=== PATIENT | male | born 1990 | race African-American/Black ===

== ENCOUNTER 2018-03-17 17:57 | Emergency (ER) | payer SELFPAY ==
[2018-03-17 18:33] LABS: Absolute Lymphocytes (CBC) 2.1 K/uL (0.7-4.9); Absolute Monocytes 0.5 K/uL (0.1-1.3); Absolute Neutrophil 3.8 K/uL (1.8-8.0); Basophils % 0.3 % (0-1.3); Eosinophils % 3.9 % (0-4.4); Lymphocytes % 31.1 % (15.3-44.8); MCH 27.5 pg (27.0-35.0); MCV 83.3 fL (80-100); MPV 7.7 fL (7.6-11.3); Monocytes % 7.8 % (3.3-12.3); RBC Red Blood Cell Count 5.64 M/uL (4.33-5.43)
[2018-03-17 18:37] LABS: Protime INR 1.05
[2018-03-17 18:43] LABS: BUN Blood Urea Nitrogen 11 mg/dL (7-18); Bicarbonate 25 mmol/L (21-32); Glucose Level 82 mg/dL (74-106); Magnesium 2.3 mg/dL (1.8-2.4); NT PRO-BNP 6 pg/mL (<125); Potassium 4.1 mmol/L (3.5-5.1); Sodium Level 139 mmol/L (136-145)
--- NOTE | 2018-03-17 19:00 | RAD REPORT ---
EXAM DESCRIPTION: RAD - Chest Single View - 03/17/2018 6:54 pm CLINICAL HISTORY: CHEST PAIN Chest pain. COMPARISON: Chest Single View dated 03/21/2016 FINDINGS: Portable technique limits examination quality. The lungs are grossly clear. The heart is normal in size. No displaced fractures. IMPRESSION: No acute intrathoracic process suspected.
--- NOTE | 2018-03-17 19:08 | EKG ---
Test Date: 2018-03-17 Test Time: 18:00:45 Auto Appraiser: KRIS MEASUREMENT RESULTS: Intervals: Rate: 67 PA: 186 QRSD: 100 QT: 422 QTc: 445 [place]: P: 65 PA: 186 QRS: 49 T: 65 INTERPRETIVE STATEMENTS: Normal sinus rhythm with sinus arrhythmia Nonspecific T wave abnormality Abnormal ECG Compared to ECG 08/10/2016 22:25:32 T-wave abnormality now present Electronically Signed On 03-17-18 19:07:58 CDT by Rodolfo Franklin
--- NOTE | 2018-03-17 19:18 | ER ---
Nurse's Notes [facility] Name: Miguel Urbina Age: 27 yrs Sex: Male : 1990 Arrival Date: 03/17/2018 Time: 18:02 Bed 5 Private MD: Diagnosis: Chest pain, unspecified Presentation: 03/17 18:03 Presenting complaint: Patient states: chest pain and hearing voices about 30 minutes dm5 prior to arrival. Pt states that he regularly hears voices but that the chest pain is new. Transition of care: patient was not received from another setting of care. Onset of symptoms was March 17, 2018. Initial Sepsis Screen: Does the patient meet any 2 criteria? No. Patient's initial sepsis screen is negative. Does the patient have a suspected source of infection? No. Patient's initial sepsis screen is negative. Care prior to arrival: None. 18:03 Method Of Arrival: Law Enforcement: [place] [employer] dm5 18:03 Acuity: FELICITA 3 dm5 19:00 Risk Assessment: Do you want to hurt yourself or someone else? Patient reports no bp desire to harm self or others. Triage Assessment: 18:03 General: Appears in no apparent distress. Behavior is calm, cooperative. Pain: dm5 Complains of pain in chest Pain radiates to left arm. Neuro: Level of Consciousness is awake, alert, obeys commands, Oriented to person, place, time, situation, Reports hearing voices. Respiratory: Airway is patent Respiratory effort is even, unlabored, relaxed, Respiratory pattern is regular, symmetrical. Derm: Skin is pink, warm \T\ dry. Historical: - Allergies: 18:04 No Known Allergies; sg - Home Meds: 18:04 Cogentin Oral [Active]; Depakote Oral [Active]; Risperdal Oral [Active]; sg - PMHx: 18:04 Bipolar disorder; Schizophrenia; sg - PSHx: 18:04 None; sg - Immunization history:: Adult Immunizations up to date. - Social history:: Smoking status: Patient/guardian denies using tobacco. - Ebola Screening: : Patient negative for fever greater than or equal to 101.5 degrees Fahrenheit, and additional compatible Ebola Virus Disease symptoms Patient denies exposure to infectious person Patient denies travel to an Ebola-affected area in the 21 days before illness onset No symptoms or risks identified at this time. Screenin:00 Abuse screen: Denies threats or abuse. Denies injuries from another. Nutritional sg screening: No deficits noted. Tuberculosis screening: No symptoms or risk factors identified. Never had TB. Fall Risk None identified. Assessment: 18:00 General: Appears in no apparent distress. comfortable, unkempt, well developed, well sg nourished, Behavior is calm, cooperative, appropriate for age, quiet. Pain: Complains of pain in chest Pain does not radiate. Quality of pain is described as sharp, stabbing. Neuro: Level of Consciousness is awake, alert, obeys commands, Oriented to person, place, time, situation, Tentmaker are equal bilaterally Moves all extremities. Full function Gait is steady, Speech is normal, Facial symmetry appears normal. Cardiovascular: Heart tones S1 S2 present Capillary refill is brisk in bilateral fingers Patient's skin is warm and dry. Chest pain quality is sharp, stabbing, is located in anterior chest wall. Respiratory: Airway is patent Respiratory effort is even, unlabored, Respiratory pattern is regular, symmetrical, Breath sounds are clear Denies cough, shortness of breath labored breathing, pain with respiration, pain with cough, pain with movement, air hunger. GI: No signs and/or symptoms were reported involving the gastrointestinal system. : No signs and/or symptoms were reported regarding the genitourinary system. EENT: No signs and/or symptoms were reported regarding the EENT system. Derm: Skin is intact, is healthy with good turgor, Skin is dry, Skin is normal, Skin temperature is warm. Musculoskeletal: No signs and/or symptoms reported regarding the musculoskeletal system. 19:00 Reassessment: RECD REPORT FROM NIRAV TREJO. 27YO BM P/W CP IN POLICE CUSTODY. ALL CURRENT bp ORDERS COMPLETED, RESULTS UNREMARKABLE. DISPO PENDING. 19:00 Pain: Pain began suddenly. bp 19:26 Reassessment: PT D/C IN CUSTODY, DX WITH UNSPECIFIED CHEST PAIN. bp Vital Signs: 18:03 BP 127 / 65; Pulse 77; Resp 18; Temp 98.3; Pulse Ox 100% on R/A; dm5 19:00 BP 105 / 73; Pulse 74; Resp 14; Pulse Ox 99% ; bp ED Course: 18:02 Patient arrived in ED. sg 18:03 Marlon Guerrier PA is PHCP. jr8 18:03 Adriel Navas MD is Attending Physician. jr8 18:03 Arm band placed on. sg 18:05 Triage completed. dm5 18:06 Ruel Dumas, RN is Primary Nurse. sg 18:14 EKG done, by civil drafting technician. reviewed by Marlon MCINTYRE. 3 18:20 Initial lab(s) drawn, Repeat lab(s) drawn. sent to lab. Inserted saline lock: 20 gauge iw in right antecubital area, using aseptic technique. Blood collected. 18:54 XRAY Chest (1 view) In Process Unspecified. EDMS 19:00 Patient has correct armband on for positive identification. Bed in low position. Call bp light in reach. Side rails up X2. Adult w/ patient. traffic monitor specialist on. Pulse ox on. NIBP on. 19:00 No provider procedures requiring assistance completed. IV discontinued, intact, bp bleeding controlled, No redness/swelling at site. Pressure dressing applied. Patient maintains SpO2 saturation greater than 95% on room air. 19:17 Primary Nurse role handed off by Ruel Dumas, MAYA 19:26 Bj Lr, RN is Primary Nurse. bp Administered Medications: No medications were administered Outcome: 19:17 Discharge ordered by . guillermina 19:27 Discharged to Law Enforcement bp 19:27 Condition: stable 19:27 Discharge instructions given to patient, Instructed on discharge instructions, follow up and referral plans. Demonstrated understanding of instructions, follow-up care. 19:28 Patient left the ED. bp Signatures: Dispatcher [employer] [facility] Tawnya Mullins, RN RN [facility] Ruel Dumas, RN Michelle Tobias RN RN iw Roszak, Josh, PA PA Bj Webber, MAYA TREJO bp Mary Denney 3
--- NOTE | 2018-03-17 19:18 | EDPHYS ---
Physician Documentation [facility] Name: Miguel Urbina Age: 27 yrs Sex: Male : 1990 Arrival Date: 03/17/2018 Time: 18:02 Bed 5 Private MD: ED Physician Adriel Navas HPI: 03/17 19:15 This 27 yrs old Black Male presents to ER via Law Enforcement with complaints of Chest jr8 Pain. 19:15 The patient or guardian reports chest pain that is located primarily in the anterior jr8 chest wall, left. The pain does not radiate. Associated signs and symptoms: The patient has no apparent associated signs or symptoms. The chest pain is described as squeezing. Duration: The patient or guardian reports a single episode. Modifying factors: The symptoms are alleviated by nothing. the symptoms are aggravated by nothing. Severity of pain: At its worst the pain was moderate in the emergency department the pain has improved. The patient has experienced similar episodes in the past, a few times. The patient has not recently seen a physician. Patient currently in half-way. Stated that while resting had sudden onset of chest pain. Has had this in past with no acute findings . Historical: - Allergies: 18:04 No Known Allergies; sg - Home Meds: 18:04 Cogentin Oral [Active]; Depakote Oral [Active]; Risperdal Oral [Active]; sg - PMHx: 18:04 Bipolar disorder; Schizophrenia; sg - PSHx: 18:04 None; sg - Immunization history:: Adult Immunizations up to date. - Social history:: Smoking status: Patient/guardian denies using tobacco. - Ebola Screening: : Patient negative for fever greater than or equal to 101.5 degrees Fahrenheit, and additional compatible Ebola Virus Disease symptoms Patient denies exposure to infectious person Patient denies travel to an Ebola-affected area in the 21 days before illness onset No symptoms or risks identified at this time. ROS: 19:15 Eyes: Negative for injury, pain, redness, and discharge, ENT: Negative for injury, jr8 pain, and discharge, Neck: Negative for injury, pain, and swelling, Respiratory: Negative for shortness of breath, cough, wheezing, and pleuritic chest pain, Abdomen/GI: Negative for abdominal pain, nausea, vomiting, diarrhea, and constipation, Back: Negative for injury and pain, MS/Extremity: Negative for injury and deformity, Skin: Negative for injury, rash, and discoloration, Neuro: Negative for headache, weakness, numbness, tingling, and seizure. 19:15 Cardiovascular: Positive for chest pain, Negative for edema, orthopnea, palpitations, paroxysmal nocturnal dyspnea. Exam: 19:15 Eyes: Pupils equal round and reactive to light, extra-ocular motions intact. Lids and jr8 lashes normal. Conjunctiva and sclera are non-icteric and not injected. Cornea within normal limits. Periorbital areas with no swelling, redness, or edema. ENT: Nares patent. No nasal discharge, no septal abnormalities noted. Tympanic membranes are normal and external auditory canals are clear. Oropharynx with no redness, swelling, or masses, exudates, or evidence of obstruction, uvula midline. Mucous membranes moist. Neck: Trachea midline, no thyromegaly or masses palpated, and no cervical lymphadenopathy. Supple, full range of motion without nuchal rigidity, or vertebral point tenderness. No Meningismus. Cardiovascular: Regular rate and rhythm with a normal S1 and S2. No gallops, murmurs, or rubs. Normal PMI, no JVD. No pulse deficits. Respiratory: Lungs have equal breath sounds bilaterally, clear to auscultation and percussion. No rales, rhonchi or wheezes noted. No increased work of breathing, no retractions or nasal flaring. Abdomen/GI: Soft, non-tender, with normal bowel sounds. No distension or tympany. No guarding or rebound. No evidence of tenderness throughout. Back: No spinal tenderness. No costovertebral tenderness. Full range of motion. Skin: Warm, dry with normal turgor. Normal color with no rashes, no lesions, and no evidence of cellulitis. MS/ Extremity: Pulses equal, no cyanosis. Neurovascular intact. Full, normal range of motion. Neuro: Awake and alert, GCS 15, oriented to person, place, time, and situation. Cranial nerves II-XII grossly intact. Motor strength 5/5 in all extremities. Sensory grossly intact. Cerebellar exam normal. Normal gait. Vital Signs: 18:03 BP 127 / 65; Pulse 77; Resp 18; Temp 98.3; Pulse Ox 100% on R/A; dm5 19:00 BP 105 / 73; Pulse 74; Resp 14; Pulse Ox 99% ; bp MDM: 18:03 Patient medically screened. [facility] 19:16 Data reviewed: vital signs, nurses notes, lab test result(s), EKG, radiologic studies, jr plain films. Data interpreted: Pulse oximetry: on room air is 100 %. Interpretation: normal. Counseling: I had a detailed discussion with the patient and/or guardian regarding: the historical points, exam findings, and any diagnostic results supporting the discharge/admit diagnosis, lab results, radiology results, the need for outpatient follow up, a family practitioner, to return to the emergency department if symptoms worsen or persist or if there are any questions or concerns that arise at home. 03/17 18:03 Order name: Basic Metabolic Panel; Complete Time: 19:03/17 18:03 Order name: CBC with Diff; Complete Time: 21:29 03/17 18:03 Order name: Magnesium; Complete Time: 19:03/17 18:03 Order name: NT PRO-BNP; Complete Time: 19:03/17 18:03 Order name: PT-INR; Complete Time: 19:03/17 18:03 Order name: Troponin (emerg Dept Use Only); Complete Time: 19:15 03/17 18:03 Order name: XRAY Chest (1 view); Complete Time: 19:15 03/17 18:03 Order name: EKG; Complete Time: 18:04 03/17 18:03 Order name: Cardiac monitoring; Complete Time: 18:06 03/17 18:03 Order name: EKG - Nurse/Tech; Complete Time: 18:06 03/17 18:03 Order name: IV Saline Lock; Complete Time: 18:58 03/17 18:03 Order name: Labs collected and sent; Complete Time: 18:58 03/17 18:03 Order name: O2 Per Protocol; Complete Time: 18: 03/17 18:36 Order name: CBC Smear Scan; Complete Time: 21:29 EDAL 03/17 18:03 Order name: O2 Sat Monitoring; Complete Time: 18:06 Administered Medications: No medications were administered Disposition: 21:32 Co-signature as Attending Physician, Adriel Navas MD I agree with the assessment and ps1 plan of care. Disposition: 03/17/18 19:17 Discharged to Home. Impression: Chest pain, unspecified. - Condition is Stable. - Discharge Instructions: Nonspecific Chest Pain, Chest Wall Pain. - Medication Reconciliation Form, Thank You Letter, Antibiotic Education, Prescription Opioid Use form. - Follow up: Private Physician; When: 5 - 6 days; Reason: Recheck today's complaints, Continuance of care, Re-evaluation by your physician. - Problem is new. - Symptoms have improved. Signatures: Dispatcher [employer] EDMS Ruel Dumas RN RN sg Marlon Guerrier PA PA jr8 Bj Lr RN RN bp Adriel Navas MD MD ps1 Corrections: (The following items were deleted from the chart) 19:28 19:17 03/17/2018 19:17 Discharged to Home. Impression: Chest pain, unspecified. bp Condition is Stable. Forms are Medication Reconciliation Form, Thank You Letter, Antibiotic Education, Prescription Opioid Use. Follow up: Private Physician; When: 5 - 6 days; Reason: Recheck today's complaints, Continuance of care, Re-evaluation by your physician. Problem is new. Symptoms have improved. jr8
[2018-03-17 19:28] LABS: Blood Morphology Comment NOT SEEN (NOT SEEN); Platelet Estimate ADEQ; Urine White Blood Cell Casts OK
[2018-03-17 19:39] VITALS: BP 105/73; O2SAT 99
[2018-03-17 19:40] VITALS: TEMP 98.3
== END 2018-03-17 19:28 | disposition home or self-care (01) ==
LOC: ER 17:57
DX: R07.9 Chest pain, unspecified (principal); F20.9 Schizophrenia, unspecified
CPT/HCPCS: 36415; 71045; 80048; 83735; 83880; 84484; 85025; 85610; 93005; 99285

== ENCOUNTER 2020-06-24 04:02 | Emergency (ER) | payer SELFPAY ==
[2020-06-24 04:20] LABS: Urine Blood NEGATIVE (NEG); Urine Glucose NEGATIVE (NEG); Urine Protein NEGATIVE (NEG); Urine Specific Gravity >1.030 (1.005-1.030)
[2020-06-24] MEDS ORDERED: THIAMINE 200 MG/2 ML INJ ONE (04:26)
[2020-06-24] MEDS ORDERED: NA CHLORIDE 0.9% 1,000 ML ONE (04:26)
[2020-06-24 04:36] LABS: Absolute Lymphocytes (CBC) 2.8 K/uL (0.7-4.9); Basophils % 0.5 % (0-1.3); Hematocrit 48.7 % (39.6-49.0); Lymphocytes % 26.1 % (15.3-44.8); MPV 7.8 fL (7.6-11.3); RBC Red Blood Cell Count 5.96 M/uL (4.33-5.43)
[2020-06-24 04:54] LABS: Barbiturates NEGATIVE (NEGATIVE); Benzodiazepines NEGATIVE (NEGATIVE); Cocaine NEGATIVE (NEGATIVE); METHAMPHETAM POSITIVE (NEGATIVE); Methadone NEGATIVE (NEGATIVE); Opiates NEGATIVE (NEGATIVE); Phencyclidine NEGATIVE (NEGATIVE); THC Cannibis POSITIVE (NEGATIVE)
[2020-06-24 04:58] LABS: Protime INR 0.95
[2020-06-24 05:05] LABS: ALT/SGPT 51 U/L (12-78); AST/SGOT 30 U/L (15-37); Albumin 3.7 g/dL (3.4-5.0); Alkaline Phosphatase 75 U/L (45-117); BUN Blood Urea Nitrogen 15 mg/dL (7-18); Bicarbonate 24 mmol/L (21-32); Bilirubin Direct < 0.1 mg/dL (0-0.2); Bilirubin Total 0.2 mg/dL (0.2-1.0); Glucose Level 107 mg/dL (74-106); Magnesium 2.4 mg/dL (1.8-2.4); NT PRO-BNP 20 pg/mL (<125); Potassium 4.1 mmol/L (3.5-5.1); Protein, Total 8.1 g/dL (6.4-8.2); Sodium Level 139 mmol/L (136-145); Troponin (Emerg Dept Use Only) < 0.02 ng/mL (0.0-0.045)
[2020-06-24] MEDS ORDERED: KETAMINE HCL 500 MG/5 ML VIAL ONE (05:15)
--- NOTE | 2020-06-24 08:55 | RAD REPORT ---
EXAM DESCRIPTION: RAD - Chest Single View - 06/24/2020 4:42 am CLINICAL HISTORY: COUGH Chest pain. COMPARISON: Chest Single View dated 03/17/2018; Chest Single View dated 03/21/2016 FINDINGS: Portable technique limits examination quality. The lungs are underinflated resulting in vascular crowding. The heart is normal in size. No displaced fractures. IMPRESSION: Underinflated lungs.
--- NOTE | 2020-06-24 09:26 | EDPHYS ---
Physician Documentation [facility] Name: Miguel Urbina Age: 29 yrs Sex: Male : 1990 Arrival Date: 06/24/2020 Time: 04:05 Bed 3 Private MD: ED Physician Issac Bar HPI: 06/24 04:38 This 29 yrs old Black Male presents to ER via EMS with complaints of Altered Mental patience Status. 04:38 The patient presents with confusion, decreased mental status. Onset: The patience symptoms/episode began/occurred just prior to arrival. Possible causes: drug use, alcohol, head injury, low blood sugar, seizure, unknown. Associated signs and symptoms: Pertinent positives: combativeness. Current symptoms: In the emergency department the patient's symptoms have improved, moderately, sedated, sp ketamine 200 mg. Patient's baseline: Neuro: alert and fully oriented. It is unknown whether or not the patient has had similar symptoms in the past. Historical: - Allergies: 04:23 No Known Allergies; sg - Home Meds: 04:23 Cogentin Oral [Active]; Depakote Oral [Active]; Risperdal Oral [Active]; sg - PMHx: 04:23 Bipolar disorder; Schizophrenia; sg - PSHx: 04:23 None; sg - Immunization history:: Adult Immunizations unknown. - Social history:: Smoking status: unknown. - Family history:: not pertinent. ROS: 04:38 Constitutional: Negative for fever, chills, and weight loss, Eyes: Negative for injury, patience pain, redness, and discharge, ENT: Negative for injury, pain, and discharge, Neck: Negative for injury, pain, and swelling, Cardiovascular: Negative for chest pain, palpitations, and edema, Respiratory: Negative for shortness of breath, cough, wheezing, and pleuritic chest pain, Abdomen/GI: Negative for abdominal pain, nausea, vomiting, diarrhea, and constipation, Back: Negative for injury and pain, : Negative for injury, bleeding, discharge, and swelling, MS/Extremity: Negative for injury and deformity, Skin: Negative for injury, rash, and discoloration, Psych: Negative for depression, anxiety, suicide ideation, homicidal ideation, and hallucinations, Allergy/Immunology: Negative for hives, rash, and allergies, Endocrine: Negative for neck swelling, polydipsia, polyuria, polyphagia, and marked weight changes, Hematologic/Lymphatic: Negative for swollen nodes, abnormal bleeding, and unusual bruising. 04:38 Neuro: Positive for altered mental status. Exam: 04:38 Constitutional: This is a well developed, well nourished patient who is awake, alert, patience and in no acute distress. Head/Face: Normocephalic, atraumatic. Eyes: Pupils equal round and reactive to light, extra-ocular motions intact. Lids and lashes normal. Conjunctiva and sclera are non-icteric and not injected. Cornea within normal limits. Periorbital areas with no swelling, redness, or edema. ENT: Nares patent. No nasal discharge, no septal abnormalities noted. Tympanic membranes are normal and external auditory canals are clear. Oropharynx with no redness, swelling, or masses, exudates, or evidence of obstruction, uvula midline. Mucous membranes moist. Neck: Trachea midline, no thyromegaly or masses palpated, and no cervical lymphadenopathy. Supple, full range of motion without nuchal rigidity, or vertebral point tenderness. No Meningismus. Chest/axilla: Normal chest wall appearance and motion. Nontender with no deformity. No lesions are appreciated. Respiratory: Lungs have equal breath sounds bilaterally, clear to auscultation and percussion. No rales, rhonchi or wheezes noted. No increased work of breathing, no retractions or nasal flaring. Abdomen/GI: Soft, non-tender, with normal bowel sounds. No distension or tympany. No guarding or rebound. No evidence of tenderness throughout. Back: No spinal tenderness. No costovertebral tenderness. Full range of motion. Male : Normal genitalia with no discharge or lesions. Skin: Warm, dry with normal turgor. Normal color with no rashes, no lesions, and no evidence of cellulitis. MS/ Extremity: Pulses equal, no cyanosis. Neurovascular intact. Full, normal range of motion. Neuro: Awake and alert, GCS 15, oriented to person, place, time, and situation. Cranial nerves II-XII grossly intact. Motor strength 5/5 in all extremities. Sensory grossly intact. Cerebellar exam normal. Normal gait. Psych: Awake, alert, with orientation to person, place and time. Behavior, mood, and affect are within normal limits. 04:38 Cardiovascular: Rate: tachycardic, Rhythm: regular, Pulses: Pulses are 4+ in bilateral radial, brachial, femoral, popliteal, posterior tibial and and dorsalis pedis arteries.. Heart sounds: normal, Edema: is not appreciated, JVD: is not appreciated. 04:38 Neuro: Orientation: unable to test, Mentation: confused, Memory: unable to test, Cranial nerves: grossly normal, is grossly normal based on the patient's age, no acute changes, Cerebellar function: unable to test, Motor: moves all fours, Sensation: unable to test, Gait: not tested. Deep tendon reflexes are 1 (trace) + in the bilateral brachioradialis, bicep, tricep and patellar and Achilles tendons, seizure activity, is not displayed by the patient. 04:55 ECG was reviewed by the Attending Physician. patience Vital Signs: 04:05 Pulse 112; Resp 16; Pulse Ox 90% on R/A; mg2 04:05 Weight 129.27 kg; sg 04:22 BP 148 / 98; Pulse 102; Resp 20; Pulse Ox 100% on 2 lpm NC; ea 04:26 Temp 97.5(A); mg2 05:47 BP 128 / 96; Pulse 87; Resp 20; Pulse Ox 95% ; ea 07:16 BP 132 / 93; Pulse 100; Resp 18; Pulse Ox 96% on R/A; em MDM: 04:06 Patient medically screened. patience 04:42 Differential Diagnosis: electrolyte abnormality, alcohol intoxication, hypoglycemia, patience intracranial bleed, meningitis, overdose, pneumonia, TIA, UTI, volume depletion. Data reviewed: vital signs, nurses notes, lab test result(s), EKG, radiologic studies, CT scan, plain films. Data interpreted: phototypesetting equipment monitor: rate is 102 beats/min, rhythm is regular, Pulse oximetry: on room air is 100 %. Test interpretation: by ED physician or midlevel provider: ECG, plain radiologic studies. Counseling: I had a detailed discussion with the patient and/or guardian regarding: the historical points, exam findings, and any diagnostic results supporting the discharge/admit diagnosis, the presence of at least one elevated blood pressure reading (>120/80) during this emergency department visit, lab results. 09:20 ED course: The patient was awake and intermittently responsive to questions. He is kdr non-threatening and non-combative. Does not appear to be SI/HI. . 06/24 04:07 Order name: Basic Metabolic Panel; Complete Time: 06:37 [facility] 06/24 04:07 Order name: CBC with Diff; Complete Time: 06:37 [facility] 06/24 04:07 Order name: LFT's; Complete Time: 06:37 [facility] 06/24 04:07 Order name: Magnesium; Complete Time: 06:37 [facility] 06/24 04:07 Order name: NT PRO-BNP; Complete Time: 06:37 [facility] 06/24 04:07 Order name: PT-INR; Complete Time: 06:37 [facility] 06/24 04:07 Order name: Troponin (emerg Dept Use Only); Complete Time: 06:37 [facility] 06/24 04:07 Order name: Acetaminophen; Complete Time: 06:37 [facility] 06/24 04:07 Order name: ETOH Level; Complete Time: 06:37 [facility] 06/24 04:07 Order name: Ptt, Activated; Complete Time: 06:37 [facility] 06/24 04:07 Order name: Salicylate; Complete Time: 06:37 [facility] 06/24 04:07 Order name: Urine Drug Screen; Complete Time: 06:37 [facility] 06/24 04:19 Order name: Urine Dipstick--Ancillary (enter results) tt3 06/24 04:19 Order name: Urine Dipstick-Ancillary; Complete Time: 06:37 [facility] 06/24 04:07 Order name: XRAY Chest (1 view) [facility] 06/24 04:07 Order name: EKG; Complete Time: 04:07 [facility] 06/24 04:07 Order name: Cardiac monitoring; Complete Time: 04:10 [facility] 06/24 04:07 Order name: EKG - Nurse/Tech; Complete Time: 04:10 [facility] 06/24 04:07 Order name: IV Saline Lock; Complete Time: 04:10 [facility] 06/24 04:07 Order name: Labs collected and sent; Complete Time: 04:10 [facility] 06/24 04:07 Order name: O2 Per Protocol; Complete Time: 04:10 [facility] 06/24 04:07 Order name: CT Head C Spine [facility] 06/24 04:23 Order name: Depakote; Complete Time: 06:37 sg 06/24 04:30 Order name: Glucose, Ancillary Testing; Complete Time: 06:37 [facility] 06/24 07:34 Order name: Diet Regular; Complete Time: 07:34 06/24 04:07 Order name: O2 Sat Monitoring; Complete Time: 04:10 [facility] 06/24 04:07 Order name: Urine Dipstick-Ancillary (obtain specimen); Complete Time: 04:10 [facility] 06/24 04:08 Order name: Blood Glucose Level; Complete Time: 04:10 [facility] 06/24 04:08 Order name: Restraint:Violent/Self Destructive (Adult:18yo or >); Complete Time: 04:10 [facility] 06/24 04:08 Order name: [place]; Complete Time: 04:10 [facility] EC:55 Rate is 103 beats/min. Rhythm is regular. QRS [place] is Normal. [place] interval is normal. [facility] QRS interval is normal. QT interval is normal. No Q waves. T waves are Normal. No ST changes noted. Clinical impression: Sinus tachycardia and No evidence of ischemia. Interpreted by me. Reviewed by me. Administered Medications: 04:20 Drug: NS 0.9% 1000 ml Route: IV; Rate: 1 bolus; Site: left antecubital; mg2 07:30 Follow up: IV Status: Completed infusion; IV Intake: 1000ml em 04:20 Drug: Thiamine 100 mg Route: IV; Rate: per protocol; Site: left antecubital; mg2 07:30 Follow up: Response: No adverse reaction; IV Status: Completed infusion em 05:10 Drug: Ketamine 100 mg Route: IVP; Site: left antecubital; ea 07:16 Follow up: Response: No adverse reaction; Marked relief of symptoms em 09:29 Not Given (Not needed at this time ): Ativan 2 mg IVP once; please give if awake and ss aggressive 09:29 Not Given (not needed at this time): Geodon 20 mg IM once; please give if awake and ss aggressive!!!! Disposition: 06/24/20 09:25 Discharged to Home. Impression: Adverse effect of amphetamines, Abuse of non-psychoactive substances, Bipolar disorder, Schizophrenia. - Condition is Stable. - Discharge Instructions: Stimulant Use Disorder-Amphetamines, Bipolar Disorder, Substance Use Disorder, Schizophrenia, Stimulant Use Disorder-Methamphetamines, Schizoaffective Disorder. - Medication Reconciliation Form, Thank You Letter form. - Follow up: Private Physician; When: 2 - 3 days; Reason: Recheck today's complaints, Continuance of care, Re-evaluation by your physician. Follow up: Dax Hirsch; When: 2 - 3 days; Reason: Recheck today's complaints, Re-evaluation by your physician. - Problem is new. - Symptoms have improved. Signatures: Dispatcher [employer] Ruel Aranda, RN Quinton Olea MD MD cha Rittger, Kevin, MD MD kdr Munoz, Edgar, RN RN em Antunez, Elena, RN RN ea Gardose, Michele, RN RN mg2 Smirch, Shelby RN ss Corrections: (The following items were deleted from the chart) 09:38 09:25 06/24/2020 09:25 Discharged to Home. Impression: Adverse effect of amphetamines; em Abuse of non-psychoactive substances; Bipolar disorder; Schizophrenia. Condition is Stable. Discharge Instructions: Stimulant Use Disorder-Amphetamines, Bipolar Disorder, Substance Use Disorder, Schizophrenia, Stimulant Use Disorder-Methamphetamines. Forms are Medication Reconciliation Form, Thank You Letter, Antibiotic Education, Prescription Opioid Use. Follow up: Private Physician; When: 2 - 3 days; Reason: Recheck today's complaints, Continuance of care, Re-evaluation by your physician. Follow up: Dax Hirsch; When: 2 - 3 days; Reason: Recheck today's complaints, Re-evaluation by your physician. Problem is new. Symptoms have improved. kdr
--- NOTE | 2020-06-24 09:26 | RAD REPORT ---
EXAM DESCRIPTION: Head C Spine Mpr Wo Con CLINICAL HISTORY: The patient is 29 years old and is Male; ams TECHNIQUE: Axial computed tomography images of the head/brain and cervical spine without intravenous contrast. Sagittal and coronal reformatted images were created and reviewed. This CT exam was pe rformed using one or more of the following dose reduction techniques: automated exposure control, a djustment of the mA and/or kV according to patient size, and/or use of iterative reconstruction techn ique. COMPARISON: No relevant prior studies available. FINDINGS: Brain: Unremarkable. No hemorrhage. No significant white matter disease. No edema. Ventricles: Unremarkable. No ventriculomegaly. Skull: No acute fracture. Sinuses: Unremarkable as visualized. No acute sinusitis. Mastoid air cells: Unremarkable as visualized. No significant mastoid fluid. Vertebrae: Anteroinferior corner of the C7 vertebral body is incompletely evaluated. No acute fr acture. Normal lateral alignment. Discs/spinal canal/neural foramina: No acute findings. No spinal canal stenosis. Soft tissues: Unremarkable. IMPRESSION: 1. No intracranial hemorrhage. No acute skull fracture. 2. No acute findings in the cervical spine. The anteroinferior corner of the C7 vertebral body is p artially cut off, incompletely evaluated. Electronically signed by: Cassidy Nettles MD 06/24/2020 5:55 AM ROLL THREADER OPERATOR Due to temporary technical issues with the PACS/Fluency reporting system, reports are being signed by the in house radiologist without review as a courtesy to ensure prompt reporting. The interpreting r adiologist is fully responsible for the content of the report.
--- NOTE | 2020-06-24 09:26 | ER ---
Nurse's Notes [facility] Name: Miguel Urbina Age: 29 yrs Sex: Male : 1990 Arrival Date: 06/24/2020 Time: 04:05 Bed 3 Private MD: Diagnosis: Adverse effect of amphetamines;Abuse of non-psychoactive substances;Bipolar disorder;Schizophrenia Presentation: 06/24 04:00 Chief complaint: EMS states: pt was found by family/friend that lives with patient, pt sg family/friend reports the pt to be confused and acting abnormal, with moaning sounds, and having been rocking his body back and forth while seated, no other complaints or information provided to EMS. Coronavirus screen: Client denies travel out of the [place] in the last 14 days. At this time, the client does not indicate any symptoms associated with coronavirus-19. Ebola Screen: Unable to complete the Ebola screening because: The patient does not understand the questions being asked. Initial Sepsis Screen: Does the patient meet any 2 criteria? Altered Mental Status. HR > 90 bpm. Yes Does the patient have a suspected source of infection? No. Patient's initial sepsis screen is negative. Risk Assessment: Do you want to hurt yourself or someone else? Patient reports no desire to harm self or others. Note pt family/friend had called EMS while in route to provide information that the pt may have a seizure disorder, takes a medication but is not sure if he has been compliant or not. Onset of symptoms was June 24, 2020. Care prior to arrival: Medication(s) given: ketamine 200 mg IM. Activity prior to arrival: combative, confused. Transition of care: patient was not received from another setting of care. 04:00 Method Of Arrival: EMS: [facility] sg 04:00 Acuity: FELICITA 2 sg Historical: - Allergies: 04:23 No Known Allergies; sg - Home Meds: 04:23 Cogentin Oral [Active]; Depakote Oral [Active]; Risperdal Oral [Active]; sg - PMHx: 04:23 Bipolar disorder; Schizophrenia; sg - PSHx: 04:23 None; sg - Immunization history:: Adult Immunizations unknown. - Social history:: Smoking status: unknown. - Family history:: not pertinent. Screenin:22 Abuse screen: Denies threats or abuse. Nutritional screening: No deficits noted. ea Tuberculosis screening: No symptoms or risk factors identified. Fall Risk IV access (20 points). Assessment: 04:05 General: Appears in no apparent distress. Behavior is unresponsive. Pain: Unable to use mg2 pain scale. Patient appears unresponsive. Neuro: Level of Consciousness is stuporous. Cardiovascular: Capillary refill < 3 seconds Patient's skin is warm and dry. Respiratory: Airway is patent Respiratory effort is even, unlabored, Respiratory pattern is regular, symmetrical. GI: No signs and/or symptoms were reported involving the gastrointestinal system. : No signs and/or symptoms were reported regarding the genitourinary system. EENT: Eyes reddened. Derm: Skin is intact, is healthy with good turgor, Skin is pink, warm \T\ dry. normal. Musculoskeletal: Circulation, motion, and sensation intact. Capillary refill < 3 seconds. 04:49 Reassessment: patient sent to CT scan via stretcher. mg2 05:00 Reassessment: Pt combative in CT, verbal order obtained for medication, medication ea administered, pt tolerated well. 05:46 Reassessment: Patient and/or family updated on plan of care and expected duration. Pain ea level reassessed. Pt resting with eyes closed, respirations even and unlabored chest expansions even and symmetrical. No s/s of pain or discomfort noted at this time. 06:11 Reassessment: Akhil (nephew) was updated about the patient status- [phone]. mg2 07:30 Reassessment: received VO to order pt a food tray from Dr. Carrera at bedside, pt em awake, calm, shaking head yes/no. 07:35 Reassessment: D/C'd restraints, pt awake calm and cooperative. em 07:50 Reassessment: Patient appears in no apparent distress at this time. Patient and/or em family updated on plan of care and expected duration. Pain level reassessed. Patient is alert, oriented x 3, equal unlabored respirations, skin warm/dry/pink. pt request catheter removed. 08:00 Reassessment: Dr. Bar at bedside. em 08:10 Reassessment: spoke with nephew and will come to the ED to cloth picker pt, nephew states he em feels comfortable taking pt home, does not have SI/HI hx but wants to get him help with [facility]. 08:34 Reassessment: breakfast tray given to pt, tolerated well. em 08:52 Reassessment: pt request to go smoke, instructed pt that this is a non smoking em facility, offered pt another intervention, pt refused, nephew called and informed pt that he does not have his vehicle at this time, nephew will attempt to get a hold of someone else to come cloth picker pt, pt waiting calmly in room. 09:20 Reassessment: pt request to be discharged, states he will walk home, was given shoes em and sweat pants and a gown, pt A\T\Ox 4 denies SI/HI. Vital Signs: 04:05 Pulse 112; Resp 16; Pulse Ox 90% on R/A; mg2 04:05 Weight 129.27 kg; sg 04:22 BP 148 / 98; Pulse 102; Resp 20; Pulse Ox 100% on 2 lpm NC; ea 04:26 Temp 97.5(A); mg2 05:47 BP 128 / 96; Pulse 87; Resp 20; Pulse Ox 95% ; ea 07:16 BP 132 / 93; Pulse 100; Resp 18; Pulse Ox 96% on R/A; em ED Course: 04:05 Patient arrived in ED. patience 04:05 Quinton Carrera MD is Attending Physician. patience 04:05 Urine collected: Downey catheter specimen, clear, noble colored, Amount Returned: 200mL sg Legal drug screen obtained per protocol. Downey cath inserted, using sterile technique, 16 Fr., by md, balloon inflated, to gravity drainage, urine specimen collected. returned noble urine. Patient tolerated well. 04:11 No provider procedures requiring assistance completed. Inserted saline lock: 20 gauge mg2 in left antecubital area, using aseptic technique. Blood collected. 04:17 Samantha Luther, MAYA is Primary Nurse. ea 04:21 Triage completed. sg 04:22 Patient has correct armband on for positive identification. Bed in low position. Call ea light in reach. 04:25 Arm band placed on right wrist. Patient placed in an exam room, on a stretcher, on ea oxygen, on potline monitor, on pulse oximetry. 04:40 XRAY Chest (1 view) In Process Unspecified. EDMS 05:34 CT Head C Spine In Process Unspecified. EDMS 07:20 Attending Physician role handed off by Quinton Carrera MD kdr 07:20 Issac Bar MD is Attending Physician. kdr 07:55 Downey cath removed intact, balloon deflated. em 08:45 IV discontinued, intact, bleeding controlled, No redness/swelling at site. Pressure em dressing applied. 09:25 Dax Hirsch MD is Referral Physician. kdr Restraints: 04:10 Violent/Self Destructive Restraint: Order: obtained. Initiated June 24, 2020 at sg 04:10 Staff present during the Initiation of Restraint: Samantha RN, Jeremiah RN, Dr.Anderson HERNANDEZ, Ruel RN, Harika [facility], Minh [facility]. Observed actions/behavior: destructive, violent, impaired decision making, Alternative interventions: Ineffective. Clinical justification for use: Violent/self destructing behavior impacts therapeutic environment. Poses a serious danger to physical safety of self \T\ others. 04:25 Violent/Self Destructive Restraint: Monitoring: Mental status: confused. Cognition: sg poor judgement, poor attention/concentration, unable to follow commands, Circulation: Within defined parameters (based on Cardiovascular assessment). Skin integrity: Within defined parameters (based on Integumentary assessment) Restraint status: Soft wrist restraint (Right) Continued. Soft wrist restraint (Left) Continued. Soft ankle restraint (Right) Continued. Soft ankle restraint (Left) Continued. 04:45 Violent/Self Destructive Restraint: Observed actions/behavior: impaired decision sg making, Clinical justification for use: Violent/self destructing behavior impacts therapeutic environment. Poses a serious danger to physical safety of self \T\ others. Monitoring: Mental status: confused. Cognition: poor judgement, poor attention/concentration, unable to follow commands, Circulation: Within defined parameters (based on Cardiovascular assessment). Skin integrity: Within defined parameters (based on Integumentary assessment) Restraint status: Soft wrist restraint (Right) Continued. Soft wrist restraint (Left) Continued. Soft ankle restraint (Right) Continued. Soft ankle restraint (Left) Continued. 05:00 Violent/Self Destructive Restraint: Observed actions/behavior: impaired decision sg making, Alternative interventions: Ineffective. Clinical justification for use: Violent/self destructing behavior impacts therapeutic environment. Poses a serious danger to physical safety of self \T\ others. Monitoring: Mental status: confused. Cognition: poor judgement, unable to follow commands, Circulation: Within defined parameters (based on Cardiovascular assessment). Skin integrity: Within defined parameters (based on Integumentary assessment) Restraint status: Soft wrist restraint (Right) Continued. Soft wrist restraint (Left) Continued. Soft ankle restraint (Right) Continued. Soft ankle restraint (Left) Continued. 05:15 Violent/Self Destructive Restraint: Observed actions/behavior: impaired decision sg making, Alternative interventions: Ineffective. Clinical justification for use: Violent/self destructing behavior impacts therapeutic environment. Poses a serious danger to physical safety of self \T\ others. Monitoring: Mental status: confused. Cognition: poor judgement, poor attention/concentration, unable to follow commands, Circulation: Within defined parameters (based on Cardiovascular assessment). Skin integrity: Within defined parameters (based on Integumentary assessment) Restraint status: Soft wrist restraint (Right) Continued. Soft wrist restraint (Left) Continued. Soft ankle restraint (Right) Continued. Soft ankle restraint (Left) Continued. 06:30 Violent/Self Destructive Restraint: Observed actions/behavior: ea confusion/disorientation, unable to follow instructions, rptd attempts to remove/tamper lines/tubes/IV/med devices \T\ wnd dressing, Monitoring: Mental status: patient asleep, Cognition: poor judgement, poor safety awareness, Impulsive, Circulation: Within defined parameters (based on Cardiovascular assessment). Skin integrity: Within defined parameters (based on Integumentary assessment) No injuries due to Restraints noted. Restraint status: Soft wrist restraint (Right) Continued. Soft wrist restraint (Left) Continued. Violent/Self Destructive Restraint: Observed actions/behavior: confusion/disorientation, unable to follow instructions, rptd attempts to remove/tamper lines/tubes/IV/med devices \T\ wnd dressing, Monitoring: Mental status: patient asleep, Cognition: poor judgement, poor safety awareness, Impulsive, Circulation: Within defined parameters (based on Cardiovascular assessment). Skin integrity: Within defined parameters (based on Integumentary assessment) No injuries due to Restraints noted. Restraint status: Soft wrist restraint (Right) Continued. Soft wrist restraint (Left) Continued. Soft ankle restraint (Right) Continued. Soft ankle restraint (Left) Continued. 06:45 Violent/Self Destructive Restraint: Observed actions/behavior: ea confusion/disorientation, unable to follow instructions, rptd attempts to remove/tamper lines/tubes/IV/med devices \T\ wnd dressing, Monitoring: Mental status: patient asleep, Cognition: poor judgement, poor safety awareness, Impulsive, Circulation: Within defined parameters (based on Cardiovascular assessment). Skin integrity: Within defined parameters (based on Integumentary assessment) No injuries due to Restraints noted. Restraint status: Soft wrist restraint (Right) Continued. Soft wrist restraint (Left) Continued. 07:00 Violent/Self Destructive Restraint: Observed actions/behavior: ea confusion/disorientation, unable to follow instructions, rptd attempts to remove/tamper lines/tubes/IV/med devices \T\ wnd dressing, Monitoring: Mental status: patient asleep, Cognition: poor judgement, poor safety awareness, Impulsive, Circulation: Within defined parameters (based on Cardiovascular assessment). Skin integrity: Within defined parameters (based on Integumentary assessment) No injuries due to Restraints noted. Restraint status: Soft ankle restraint (Right) Discontinued. Soft ankle restraint (Left) Discontinued. 07:15 Violent/Self Destructive Restraint: Observed actions/behavior: em confusion/disorientation, unable to follow instructions, Monitoring: Mental status: agitated/restless, confused. Cognition: poor judgement, poor safety awareness, unable to follow commands, Circulation: Within defined parameters (based on Cardiovascular assessment). Skin integrity: Within defined parameters (based on Integumentary assessment) No injuries due to Restraints noted. Restraint status: Soft wrist restraint (Right) Continued. Soft wrist restraint (Left) Continued. Soft ankle restraint (Right) Discontinued. Soft ankle restraint (Left) Discontinued. 07:30 Violent/Self Destructive Restraint: Observed actions/behavior: em confusion/disorientation, impaired decision making, Monitoring: Mental status: confused. Cognition: poor judgement, poor safety awareness, unable to follow commands, Restraint status: Soft wrist restraint (Right) Continued. Soft wrist restraint (Left) Continued. Soft ankle restraint (Right) Discontinued. Soft ankle restraint (Left) Discontinued. 07:35 Violent/Self Destructive Restraint: Restraint discontinuation: Discontinued at June at 07:35 Effective alternative interventions: reoriented to location, repositioned. Administered Medications: 04:20 Drug: NS 0.9% 1000 ml Route: IV; Rate: 1 bolus; Site: left antecubital; mg2 07:30 Follow up: IV Status: Completed infusion; IV Intake: 1000ml em 04:20 Drug: Thiamine 100 mg Route: IV; Rate: per protocol; Site: left antecubital; mg2 07:30 Follow up: Response: No adverse reaction; IV Status: Completed infusion em 05:10 Drug: Ketamine 100 mg Route: IVP; Site: left antecubital; ea 07:16 Follow up: Response: No adverse reaction; Marked relief of symptoms em 09:29 Not Given (Not needed at this time ): Ativan 2 mg IVP once; please give if awake and ss aggressive 09:29 Not Given (not needed at this time): Geodon 20 mg IM once; please give if awake and ss aggressive!!!! Intake: 07:30 IV: 1000ml; Total: 1000ml. em Outcome: 09:25 Discharge ordered by . kdr 09:34 Discharged to home ambulatory. em 09:34 Condition: improved 09:34 Discharge instructions given to patient, Instructed on discharge instructions, follow up and referral plans. Demonstrated understanding of instructions, follow-up care. 09:38 Patient left the ED. em Signatures: Dispatcher [employer] Ruel Aranda RN RN Quinton Antony MD MD cha Rittger, Kevin, MD MD kdr Munoz, Edgar, RN RN em Antunez, Elena, RN RN ea Gardose, Michele, RN RN mg2 Smirch, Shelby RN ss
[2020-06-24 10:26] VITALS: TEMP 97.5
[2020-06-24 10:34] VITALS: BP 132/93; O2SAT 96
== END 2020-06-24 09:38 | disposition home or self-care (01) ==
LOC: ER 04:02
DX: F55.8 Abuse of other non-psychoactive substances (principal); T43.625A Adverse effect of amphetamines, initial encounter; F25.0 Schizoaffective disorder, bipolar type
CPT/HCPCS: 36415; 51702; 70450; 71045; 72125; 80048; 80076; 80164; 80307; 80320; 80329; 81003; 82947; 83735; 83880; 84484; 85025; 85610; 85730; 93005; 96365; 96366; 96375; 99285; J3411; J7030

== ENCOUNTER 2025-06-05 17:46 | Emergency (ER) | payer SELFPAY ==
--- NOTE | 2025-06-05 18:00 | EDPHYS ---
Physician Documentation [facility] Name: Miguel Urbina Age: 34 yrs Sex: Male : 1990 Arrival Date: 06/05/2025 Time: 17:46 Bed IW5 Private MD: ED Physician Quinton Carrera HPI: 06/05 18:01 This 34 yrs old Black Male presents to ER via Ambulatory with complaints of Foreign sb4 Body In Ear - left. 18:02 The patient or guardian reports the patient has a suspected foreign body, sb4 18:05 Patient reports a foreign body sensation in his left ear since yesterday. He denies any sb4 pain. Is not sure what could be in there, thinks maybe a bug. Has tried shaking his ear but nothing has come out. Historical: - Allergies: 17:59 No Known Allergies; me1 - PMHx: 17:59 Bipolar disorder; Schizophrenia; me1 - Immunization history:: Adult Immunizations up to date. - Infectious Disease History:: Denies. - Social history:: Smoking status: unknown. ROS: 18:05 Constitutional: Negative for fever, chills, and weight loss, sb4 18:05 ENT: Positive for per HPI, 18:05 All other systems are negative, Exam: 18:05 Constitutional: This is a well developed, well nourished patient who is awake, alert, sb4 and in no acute distress. Head/Face: Normocephalic, atraumatic. Eyes: Extra-ocular motions intact. Periorbital areas with no swelling, redness, or edema. Respiratory: No increased work of breathing, no retractions or nasal flaring. Skin: Warm, dry with normal turgor. Normal color with no rashes, no lesions, and no evidence of cellulitis. 18:05 ENT: Ear canal(s): foreign body, ear bud, in the left external ear canal, Vital Signs: 17:57 BP 132 / 68; Pulse 95; Resp 16; Temp 98.2; Pulse Ox 100% ; Weight 90.72 kg; Height 6 me1 ft. 0 in. ; 17:57 Body Mass Index 27.12 (90.72 kg, 182.88 cm) me1 Procedures: 18:05 Foreign Body Removal: ear bud, from the left ear canal, by using alligator clamps, The sb4 patient tolerated the removal well. MDM: 17:50 Medical Screening Exam initiated sb4 18:05 Data reviewed: vital signs, nurses notes, and as a result, I will discharge patient. sb4 Counseling: I had a detailed discussion with the patient and/or guardian regarding the historical points, exam findings, and any diagnostic results supporting the discharge/admit diagnosis, the need for outpatient follow up, for definitive care, to return to the emergency department if symptoms worsen or persist or if there are any questions or concerns that arise at home. Administered Medications: No medications were administered Disposition Summary: 06/05/25 18:00 Discharge Ordered Notes: Location: Home sb4 Condition: Stable sb4 Diagnosis - Foreign body in left ear sb4 Followup: sb4 - With: Private Physician - When: As needed - Reason: Recheck today's complaints, Re-evaluation by your physician Discharge Instructions: - Discharge Summary Sheet sb4 - Ear Foreign Body, [id number] sb4 Forms: - Patient Portal Instructions sb4 - Leadership Thank You Letter sb4 Signatures: Jennifer Doll PA-C PA-C sb4 Clarisa Pham, RN RN me1
--- NOTE | 2025-06-05 18:00 | ER ---
Nurse's Notes [facility] Name: Miguel Urbina Age: 34 yrs Sex: Male : 1990 Arrival Date: 06/05/2025 Time: 17:46 Bed IW5 Private MD: Diagnosis: Foreign body in left ear Presentation: 06/05 17:57 Chief complaint: Patient states: feels like something is in his left ear since me1 yesterday. Coronavirus screen: At this time, the client does not indicate any symptoms associated with coronavirus-19. Ebola Screen: No symptoms or risks identified at this time. Initial Sepsis Screen: Does the patient meet any 2 criteria? HR > 90 bpm. Does the patient have a suspected source of infection? No. Patient's initial sepsis screen is negative. Risk Assessment: Do you want to hurt yourself or someone else? Patient reports no desire to harm self or others. Onset of symptoms was June 04, 2025. 17:57 Method Of Arrival: Ambulatory in1 17:57 Acuity: FELICITA 5 me1 Triage Assessment: 17:59 General: Appears in no apparent distress. Behavior is calm, cooperative, appropriate me1 for age. Pain: Denies pain. EENT: Reports feels like something is in his left ear since yesterday. Neuro: Level of Consciousness is awake, alert, obeys commands, Oriented to person, place, time, situation, Appropriate for age. Cardiovascular: Patient's skin is warm and dry. Respiratory: Airway is patent Respiratory effort is even, unlabored, Respiratory pattern is regular, symmetrical. GI: No signs and/or symptoms were reported involving the gastrointestinal system. : No signs and/or symptoms were reported regarding the genitourinary system. Derm: Skin is intact, is healthy with good turgor, Skin is normal. Musculoskeletal: Circulation, motion, and sensation intact. Range of motion: intact in all extremities. Historical: - Allergies: 17:59 No Known Allergies; me1 - PMHx: 17:59 Bipolar disorder; Schizophrenia; me1 - Immunization history:: Adult Immunizations up to date. - Infectious Disease History:: Denies. - Social history:: Smoking status: unknown. Screenin:01 [facility] ED Fall Risk Assessment (Adult) History of falling in the last 3 months, me1 including since admission No falls in past 3 months (0 pts) Confusion or Disorientation No (0 pts) Intoxicated or Sedated No (0 pts) Impaired Gait No (0 pts) Mobility Assist Device Used No (0 pt) Altered Elimination No (0 pt) Score/Fall Risk Level 0 - 2 = Low Risk Maintained a safe environment, Provided non-skid footwear, Hourly rounding (assess needs \T\ fall precautionary measures) done. Abuse screen: Denies threats or abuse. Nutritional screening: No deficits noted. Tuberculosis screening: No symptoms or risk factors identified. Assessment: 18:01 Reassessment: See triage assessment. me1 Vital Signs: 17:57 BP 132 / 68; Pulse 95; Resp 16; Temp 98.2; Pulse Ox 100% ; Weight 90.72 kg; Height 6 me1 ft. 0 in. ; 17:57 Body Mass Index 27.12 (90.72 kg, 182.88 cm) me1 ED Course: 17:49 Patient arrived in ED. im 17:50 [facility]. sb4 17:50 Quinton Carrera MD is Attending Physician. sb4 17:59 Triage completed. me1 17:59 Arm band placed on Patient placed. me1 18:00 Quinton Carrera MD is Referral Physician. sb4 18:00 Referral Physician role handed off by Quinton Carrera MD sb4 18:01 Patient has correct armband on for positive identification. Provided Education on: POC. me1 Verbalized understanding.. 18:01 Assist provider with foreign body removal from left ear canal. using alligator clamps, me1 Performed by Jennifer Doll PA-C Patient tolerated well. Patient did not have IV access during this emergency room visit. Administered Medications: No medications were administered Medication: 18:01 VIS not applicable for this client. me1 Outcome: 18:00 Discharge ordered by . sb4 18:01 Discharged to home ambulatory, me1 18:01 Condition: stable 18:01 Discharge instructions given to patient, Instructed on discharge instructions, follow up and referral plans. Demonstrated understanding of instructions, follow-up care, 18:02 Patient left the ED. me1 Signatures: Jennifer Doll PA-C PA-C sb4 Maddison Weiss Clarisa Pham RN RN me1
[2025-06-05 22:18] VITALS: BP 132/68; TEMP 98.2; O2SAT 100
== END 2025-06-05 18:02 | disposition home or self-care (01) ==
LOC: ER 17:46
DX: T16.2XXA Foreign body in left ear, initial encounter (principal)
CPT/HCPCS: 99283